=== PATIENT | female | born 1950 | race Caucasian/White ===

== ENCOUNTER → 2018-01-02 09:09 | Outpatient (CLI) | payer OTHER, SELFPAY ==
[2018-01-02 10:06] LABS: Hematocrit 33.2 % (37-47); Hemoglobin 10.9 g/dl (12.0-15.0); Mean Corp Hgb Conc 32.8 g/gl (32-36); Mean Corpuscular Hgb 28.5 pg (27.0-32.0); Mean Corpuscular Volume 86.9 fL (81-99); Mean Platelet Vol. 9.4 fl (6.2-12.0); Platelet Count 353 K/mm3 (150-450); RBC Distribution Width CV 13.7 % (11.6-14.6); Red Blood Count 3.82 M/mm3 (4.2-5.4); White Blood Count 10.7 K/mm3 (4.4-11.0)
[2018-01-02 10:15] LABS: Scan Indicated on CBC? Y/N NO
[2018-01-02 10:43] LABS: PTHIN 69.3 pg/mL (18.4-80.1)
[2018-01-02 10:48] LABS: Albumin, Serum 3.5 g/dL (3.2-5.0); BUN 40 mg/dL (7-18); BUN/Creat Ratio 21.1 RATIO (10-20); Calcium,Total 8.7 mg/dL (8.5-10.1); Chloride 104 mmol/L (98-107); EST Glomerular Filtration Rate 28 mL/min (>60); Est Glom Filt Rate - Afr Amer 34 mL/min (>60); Glucose 339 mg/dL (74-106); Phosphorus 4.5 mg/dL (2.5-4.9); Potassium 5.4 mmol/L (3.5-5.1); Sodium Level 134 mmol/L (136-145)
== END ==
PROVIDERS: Family Provider Family Medicine; PCP Family Medicine; Visit Provider Internal Medicine Nephrology
DX: N17.9 Acute kidney failure, unspecified (principal)
CPT/HCPCS: 36415; 80069; 83970; 85027

== ENCOUNTER → 2018-04-10 12:50 | Outpatient (CLI) | payer OTHER, SELFPAY ==
[2018-04-10 13:19] LABS: Hematocrit 29.8 % (37-47); Hemoglobin 9.3 g/dl (12.0-15.0); Mean Corp Hgb Conc 31.2 g/gl (32-36); Mean Corpuscular Hgb 27.9 pg (27.0-32.0); Mean Corpuscular Volume 89.5 fL (81-99); Mean Platelet Vol. 8.9 fl (6.2-12.0); Platelet Count 359 K/mm3 (150-450); RBC Distribution Width CV 13.8 % (11.6-14.6); RBC Distribution Width SD 44.2 fl (35.1-43.9); Red Blood Count 3.33 M/mm3 (4.2-5.4); Scan Indicated on CBC? Y/N NO; White Blood Count 11.5 K/mm3 (4.4-11.0)
[2018-04-10 13:53] LABS: Albumin, Serum 2.8 g/dL (3.2-5.0); BUN 28 mg/dL (7-18); BUN/Creat Ratio 15.4 RATIO (10-20); Calcium,Total 8.3 mg/dL (8.5-10.1); Chloride 105 mmol/L (98-107); Creatinine, Serum 1.82 mg/dL (0.55-1.02); EST Glomerular Filtration Rate 29 mL/min (>60); Est Glom Filt Rate - Afr Amer 36 mL/min (>60); Glucose 156 mg/dL (74-106); Phosphorus 4.2 mg/dL (2.5-4.9); Potassium 4.3 mmol/L (3.5-5.1); Sodium Level 141 mmol/L (136-145)
== END ==
PROVIDERS: Family Provider Family Medicine; PCP Family Medicine; Visit Provider Internal Medicine Nephrology
DX: E11.22 Type 2 diabetes mellitus with diabetic chronic kidney disease (principal); N18.3 Chronic kidney disease, stage 3 (moderate); D50.9 Iron deficiency anemia, unspecified
CPT/HCPCS: 36415; 80069; 85027

== ENCOUNTER → 2018-04-12 10:33 | Outpatient (CLI) | payer OTHER, SELFPAY ==
[2018-04-12 12:15] LABS: Protein, Urine (Random) 385.4 mg/dL (<11.9); Protein:Creat Ratio 7085 mg/g CRE (0-200)
== END ==
PROVIDERS: Family Provider Family Medicine; PCP Family Medicine; Visit Provider Internal Medicine Nephrology
DX: E11.22 Type 2 diabetes mellitus with diabetic chronic kidney disease (principal); N18.9 Chronic kidney disease, unspecified
CPT/HCPCS: 82570; 84156